=== PATIENT | male | born 1950 | race Caucasian/White ===

== ENCOUNTER → 2017-01-02 | Outpatient (CLI) | payer MEDICARE, OTHER ==
[~2017-01-02] MED LIST: COLACE100 MG PO; CPAP INH; DELTASONE5 MG PO; FLOMAX0.4 MG PO; FOLIC ACID1 MG PO; METHOTREXATE25 MG/ML IM; NEOSPORIN1 PKT TOP; NORCO 5-325 MG1 TAB PO; PRILOSEC40 MG PO; SYMPONI IV; THERAGRAN-M1 TAB PO; TOPROL XL 5050 MG PO; VOLTAREN75 MG PO; ZYRTEC10 MG PO
== END | disposition disaster alternative care site (69) ==
LOC: GRAD 09:38
DX: C61 Malignant neoplasm of prostate (principal)
CPT/HCPCS: A9503; Q9967